=== PATIENT | male | born 1965 ===

== ENCOUNTER 2017-08-30 18:59 | Emergency (ER) | payer MEDICAID ==
--- NOTE | 2017-08-30 19:18 | ED PDOC ---
HPI: Male Pain Time Seen by Provider: 08/30/17 19:10 Chief Complaint (Nursing): Male Genitourinary Chief Complaint (Provider): Flank Pain History Per: Patient History/Exam Limitations: no limitations Onset/Duration Of Symptoms: Days (x 1 week) Current Symptoms Are (Timing): Still Present Additional Complaint(s): Naun is a 52 y/o male with a history of hypertension and kidney stones who presents to the ED complaining of left flank and abdominal pain, fever, and hematuria. Patient states that the pain started 1 week ago with a cough, and he saw his PMD who did not find anything. This morning, he developed a fever. He has been taking tylenol for the pain, last dose at 12pm. PMD: Daya Armenta Past Medical History Reviewed: Historical Data, Nursing Documentation, Vital Signs Vital Signs: Last Vital Signs Temp 101.4 F H 08/30/17 19:01 Pulse 126 H 08/30/17 19:01 Resp 16 08/30/17 19:01 BP 157/92 H 08/30/17 19:01 Pulse Ox 99 08/30/17 19:01 - Medical History PMH: HTN, Kidney Stones - Surgical History Other surgeries: kidney stone operation - Family History Family History: States: Diabetes, Hypertension - Home Medications Home Medications: Ambulatory Orders Medication Instructions Recorded Tamsulosin [Flomax] 0.4 mg PO DAILY #14 cap 06/16/14 oxyCODONE/Acetaminophen [Percocet 1 tab PO Q6H PRN #15 tab 06/16/14 5/325 mg Tab] Acetaminophen/Codeine Phosph 1 tab PO TID #10 tab 03/23/15 [Acetaminophen and Codeine Phosphate #3 300 mg] Ibuprofen [Motrin] 600 mg PO Q8 #30 tab 03/23/15 Tamsulosin HCl [Flomax] 0.4 mg PO DAILY #15 cap 03/23/15 Ondansetron [Zofran Odt] 4 mg PO ASDIR PRN #20 odt 07/27/15 traMADol [Ultram] 50 mg PO TID PRN #15 tab 07/27/15 Ciprofloxacin HCl [Cipro] 500 mg PO BID #14 tablet 08/30/17 Oseltamivir [Tamiflu] 75 mg PO BID #9 cap 08/30/17 - Allergies Allergies/Adverse Reactions: Allergies Allergy/AdvReac Type Severity Reaction Status Date / Time No Known Allergies Allergy Verified 08/30/17 19:01 Review of Systems ROS Statement: Except As Marked, All Systems Reviewed And Found Negative Constitutional: Positive for: Fever Gastrointestinal: Positive for: Abdominal Pain Genitourinary Male: Positive for: Hematuria Musculoskeletal: Positive for: Back Pain (left flank) Physical Exam - Reviewed Nursing Documentation Reviewed: Yes Vital Signs Reviewed: Yes - Physical Exam Appears: Positive for: Well, Non-toxic, No Acute Distress Skin: Positive for: Normal Color, Warm, Dry Cardiovascular/Chest: Positive for: Regular Rate, Rhythm. Negative for: Murmur Respiratory: Positive for: Normal Breath Sounds. Negative for: Respiratory Distress Gastrointestinal/Abdominal: Positive for: Normal Exam, Soft. Negative for: Tenderness Back: Positive for: Normal Inspection. Negative for: L CVA Tenderness, R CVA Tenderness, Vertebral Tenderness Neurologic/Psych: Positive for: Alert, Oriented - Laboratory Results Result Diagrams: 08/30/17 20:06 08/30/17 20:06 - ECG O2 Sat by Pulse Oximetry: 99 (RA) Pulse Ox Interpretation: Normal - Progress ED Course And Treament: NS 1 LITER WIDE OPEN ROCEPHIN 1 GM IV ACETAMINOPHEN 975MG X 1 DOSE BC X 2/ URINALYSIS AN URINE CX SENT VENOUS BLOOD GAS REVIEWED: LACTATE WNL CT ABD/PELVIS: IMPRESSION: 1. Bilateral nonobstructing renal stones, similar to prior study. No hydronephrosis. 2. 4 mm pulmonary nodule in the left upper lobe (image 6, series 3). As per Fleischner Society guidelines for follow-up and management of pulmonary nodules less than 6 mm: For patients at low risk (minimal or absent history of smoking and of other known risk factors), no follow-up needed. For patients at high risk (history of smoking or of other known risk factors), consider follow-up chest CT at 12 months. Thank you for allowing us to participate in the care of your patient. Dictated and Authenticated by: Edmond Almeida MD d/w Dr. Marmolejo. Seen by him Will given tamiflu rx for presumptive flu and cipro for uti. Patient advised f/u with pmd. tamiflu 75mg x 1 dose Medical Decision Making Medical Decision Making: Time: 19:15 Initial Impression: Left Flank Pain, Hematuria, Fever Initial Plan: -- Scribe Attestation: Documented by Donta Sales, acting as a scribe for Marlon Brunner PA-C Provider Scribe Attestation: All medical record entries made by the Scribe were at my direction and personally dictated by me. I have reviewed the chart and agree that the record accurately reflects my personal performance of the history, physical exam, medical decision making, and the department course for this patient. I have also personally directed, reviewed, and agree with the discharge instructions and disposition. Disposition - Clinical Impression Clinical Impression: Urinary tract infection - Patient ED Disposition Is Patient to be Admitted: No - Disposition Referrals: Ashele Walter MD [Medical Doctor] - Disposition: Routine/Home Disposition Time: 22:33 Condition: FAIR Prescriptions: Ciprofloxacin HCl [Cipro] 500 mg PO BID #14 tablet Oseltamivir [Tamiflu] 75 mg PO BID #9 cap Instructions: Urinary Tract Infections in Adults, Flu Forms: [employer] (Uzbek) Print Language: SERBIAN
[2017-08-30] MEDS ORDERED: cefTRIAXone (Rocephin) 1 gm Inj IVPB ONE (19:19)
[2017-08-30] MEDS ORDERED: Sodium Chloride 0.9% 1,000 ML IV STA (19:20)
[2017-08-30 20:10] LABS: BASO % 0.5 % (0.0-2.0); HEMOGLOBIN 16.3 g/dL (12.0-18.0); LYMPH # 0.7 K/uL (1.0-4.3); LYMPH % 11.6 % (20.0-40.0); MEAN CELL VOLUME 95.6 fl (80.0-94.0); MEAN CORPUSCULAR HEMOGLOBIN 33.6 pg (27.0-31.0); MEAN CORPUSCULAR HGB CONC 35.2 g/dL (33.0-37.0); MEAN PLATELET VOLUME 7.9 fl (7.2-11.7); MONO # 0.5 K/uL (0.0-0.8); MONO % 8.4 % (0.0-10.0); NEUT # 5.1 K/uL (1.8-7.0); NEUT % 79.5 % (50.0-75.0); NRBC % 0.1 % (0.0-0.0); RBC 4.85 Mil/uL (4.40-5.90); RED CELL DISTRIBUTION WIDTH 13.1 % (11.5-14.5); WHITE BLOOD COUNT 6.3 K/uL (4.8-10.8)
[2017-08-30 20:10] LABS: VENOUS BLOOD GAS PCO2 43 mmHg (40-60); VENOUS BLOOD GAS PO2 21 mm/Hg (30-55); VENOUS BLOOD PH 7.46 (7.32-7.43)
[2017-08-30 20:21] LABS: URINE BILIRUBIN NEGATIVE (NEGATIVE); URINE BLOOD MODERATE (NEGATIVE); URINE CLARITY CLEAR (Clear); URINE COLOR STRAW (YELLOW); URINE GLUCOSE (UA) NEG (Normal); URINE LEUKOCYTE ESTERASE NEG Leu/uL (Negative); URINE PROTEIN NEGATIVE (NEGATIVE); URINE UROBILINOGEN 0.2-1.0 mg/dL (0.2-1.0)
[2017-08-30 20:21] LABS: ALB/GLOB RATIO 1.2 (1.0-2.1); ALBUMIN 4.6 g/dL (3.5-5.0); ALT/SGPT 57 U/L (21-72); AST/SGOT 46 U/L (17-59); BLOOD UREA NITROGEN 8 mg/dl (9-20); CALCIUM 9.4 mg/dL (8.4-10.2); GFR AFRICAN-AMERICAN > 60; GFR NON-AFRICAN AMERICAN > 60; LIPASE 61 U/L (23-300)
[2017-08-30 20:35] LABS: SQUAMOUS EPITHIAL 2 /hpf (0-5)
[2017-08-30 22:20] VITALS: BP 131/81; PULSE 89; RESP 15; TEMP 98.9
[2017-08-31 00:01] VITALS: O2SAT 99
--- NOTE | 2017-08-31 09:24 | RAD ---
HISTORY: cough COMPARISON: Comparison chest 07/27/2015 TECHNIQUE: Chest PA and lateral FINDINGS: LUNGS: Suspect minor linear atelectasis and or scarring changes left lung base. PLEURA: No significant pleural effusion identified. No pneumothorax apparent. CARDIOVASCULAR: Normal. OSSEOUS STRUCTURES: No significant abnormalities. VISUALIZED UPPER ABDOMEN: Normal. OTHER FINDINGS: None. IMPRESSION: Suspect minor linear atelectasis and or scarring changes left lung base.
--- NOTE | 2017-08-31 11:32 | CT ---
PROCEDURE: CT scan abdomen and pelvis dated 08/30/2017. HISTORY: Left flank pain/fever/ h/o stent 15 years ago. COMPARISON: Comparison made with prior CT scan abdomen pelvis 07/27/2015. TECHNIQUE: Contiguous helical/transaxial images of the abdomen and pelvis performed without oral or intravenous contrast material. Additional 2 dimensional sagittal and coronal reformats generated. Radiation dose: Total exam DLP = This CT exam was performed using one or more of the following dose reduction techniques: Automated exposure control, adjustment of the mA and/or kV according to patient size, and/or use of iterative reconstruction technique. FINDINGS: LOWER THORAX: No acute consolidation within the visualized lower lung moon. Minor linear atelectasis/ scarring changes in the middle lobe and lingular regions. Small approximately 3.9 mm nodule versus volume averaging of a branch vessel superior aspect left lower lobe. LIVER: Liver exhibits normal size measuring approximately 16 cm in CC dimension. Liver exhibits mild diffuse homogeneous low-attenuation suggesting fatty infiltration. No obvious hepatic masses or collections. GALLBLADDER AND BILE DUCTS: Gallbladder is physiologically distended. No evidence of intraluminal gallbladder calculi. PANCREAS: Pancreas appears slightly atrophic and fatty replaced. No pancreatic masses collections or calcifications. No significant pancreatic ductal dilatation. SPLEEN: Spleen exhibits normal size and attenuation pattern small splenule adjacent to to the anteromedial border of the main body of the spleen. ADRENALS: No adrenal lesions. KIDNEYS AND URETERS: Kidneys demonstrate relatively symmetric size. Few punctate calcifications lower pole left kidney as well as the mid the upper and lower pole right kidney however no evidence of obstructive hydronephrosis. Note made of a small approximately 12.6 mm rounded low-attenuation focus upper pole right kidney consistent with small cyst. BLADDER: Urinary bladder is incompletely distended which presumably in part accounts for thick-walled appearance. Muscular hypertrophy may contribute cystitis in a male patient would be less likely though not completely excluded. REPRODUCTIVE: Prostate gland measures approximately 4.66 cm in transverse dimension. Prostatic calcifications are present. APPENDIX: What probably represents a normal appendix best seen on coronal image number [id number]. BOWEL: Evaluation of the bowel is limited due to the lack of oral contrast. Stomach is incompletely distended. Visualized loops small bowel exhibit normal contour and caliber. No evidence acute mechanical small bowel obstruction. . Stool and air seen throughout the large bowel. No definitive mural wall thickening. PERITONEUM: Unremarkable. No fluid collection. No free air. Small fat containing umbilical hernia. Small fat containing bilateral inguinal hernias left larger than right. LYMPH NODES: Few small nonspecific retroperitoneal lymph nodes are present. VASCULATURE: No evidence of abdominal aortic aneurysm. BONES: Minor multilevel degenerative spondylosis of the lower thoracic and lumbar spine. No acute compression fractures no retropulsed fragments. OTHER FINDINGS: None. IMPRESSION: There are punctate nonobstructing calcifications both kidneys as described. No evidence of hydronephrosis. Mild urinary bladder wall thickening likely due to incomplete distention and muscular hypertrophy however the possibility of a cystitis not completely excluded. Clinical correlation recommended.
== END 2017-08-30 22:34 | disposition home or self-care (01) ==
LOC: H.ER 18:59
DX: N39.0 Urinary tract infection, site not specified (principal); I10 Essential (primary) hypertension; Z87.442 Personal history of urinary calculi
CPT/HCPCS: 71046; 74176; 80053; 81003; 82803; 83690; 85025; 87040; 87086; 87804; 96365; 99285; J0696; J7040